=== PATIENT | male | born 2000 | race Caucasian/White ===

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

== ENCOUNTER 2020-05-16 11:48 | Emergency (ER) | payer OTHER ==
[~2020-05-16] VITALS: Ht 188 cm; Wt 77.1 kg
[2020-05-16 11:54] VITALS: BP 118/75
--- NOTE | 2020-05-16 12:10 | NUR ---
20 YEAR OLD MALE COMPLAINS OF RECTAL PAIN X 4 DAYS. PT STATES THAT HE HAS HAD PREVIOUS HISTORY OF HEMORRHOIDS, BUT MORE BLEEDING THIS TIME. PT DENIES TRAUMA. PT AOX4, BREATHING EVEN AND UNLABORED, SKIN WARM AND DRY. BED IN LOWEST POSITION, LOCKED, BED RAIL UPX1. PMH - DENIES ALLERGIES - NKA
[2020-05-16] MEDS ORDERED: LIDO30CR TP (12:27)
[2020-05-16] MEDS ORDERED: NITR0.4O RC (12:34)
[2020-05-16 12:39] VITALS: BP 118/75
--- NOTE | 2020-05-16 12:40 | NUR ---
Patient discharged with v/s stable. Written and verbal after care instructions about anal fissure given and explained. Patient alert, oriented and verbalized understanding of instructions. Ambulatory with steady gait. All questions addressed prior to discharge. ID band removed. Patient advised to follow up with PMD. Rx of lidocaine, rectiv given. Patient educated on indication of medication including possible reaction and side effects. Opportunity to ask questions provided and answered.
== END 2020-05-16 12:40 | disposition home or self-care (01) ==
LOC: MED 11:48
DX: K60.2 Anal fissure, unspecified (principal); Z79.899 Other long term (current) drug therapy
CPT/HCPCS: 99283

== ENCOUNTER 2020-05-27 13:54 | Emergency (ER) | payer OTHER ==
[~2020-05-27] VITALS: Ht 188 cm; Wt 77.1 kg
[~2020-05-27 13:54] MED LIST: LIDO30CR TP; NITR0.4O RC
[2020-05-27 13:58] VITALS: BP 122/59
--- NOTE | 2020-05-27 14:03 | NUR ---
Pt ambulated to bed 3.
--- NOTE | 2020-05-27 14:25 | NUR ---
20 Y/O MALE C/O RECTAL PAIN [id number], WAS SEEN AND DX WITH AN ANAL FISSURE PRESCRIBED CREAMS AND PAIN RX. PT STATED HIS S/S GOT WORSE AND SAW PCP WHO DX WITH INFECTION AND PRESCRIBED ABX X6DAYS. PT IS NOW STATING X2DAYS RECTAL PAIN IS 10/10 DESCRIBES THROBBING WORST WHEN SITTING AND NON-RADIATING. PT STATES +DISCHARGE, DENIES FEVER/CHILLS, DENIES N/V. PT STATES HE HAD 1ST COVID VACCINE 05/26/20. DENIES PMH NKA
--- NOTE | 2020-05-27 14:28 | NUR ---
MIREILLE Rubi at pt bedside for further evaluation.
[2020-05-27] MEDS ORDERED: KETOROLAC 60 MG/2 ML VIAL IM ONE (14:30)
[2020-05-27] MEDS ORDERED: DOXY100C9 PO (14:59)
[2020-05-27] MEDS ORDERED: NAPR-54 PO (14:59)
[2020-05-27 15:01] VITALS: BP 122/59
--- NOTE | 2020-05-27 15:02 | NUR ---
Patient discharged with v/s stable. Written and verbal after care instructions given and explained. Patient alert, oriented and verbalized understanding of instructions. Ambulatory with steady gait. All questions addressed prior to discharge. ID band removed. Patient advised to follow up with PMD. Rx of naproxen 500mg bid prn moderate pain, and doxycycline hyclate 100mg cap bid x7days given. Patient educated on indication of medication including possible reaction and side effects. Opportunity to ask questions provided and answered.
== END 2020-05-27 15:05 | disposition home or self-care (01) ==
LOC: MED 13:54
DX: L05.91 Pilonidal cyst without abscess (principal); Z79.899 Other long term (current) drug therapy
CPT/HCPCS: 96372; 99283; J1885

== ENCOUNTER 2020-06-06 12:42 | Emergency (ER) | payer OTHER ==
[~2020-06-06] VITALS: Ht 188 cm; Wt 77.1 kg
[~2020-06-06 12:42] MED LIST changes: +DOXY100C9 PO; +NAPR-54 PO
[2020-06-06 12:49] VITALS: BP 126/64
--- NOTE | 2020-06-06 12:55 | NUR ---
Pt ambulated to ER bed 2 with a steady gait.
--- NOTE | 2020-06-06 13:01 | NUR ---
20 Y/O MALE HERE FOR A RECHECK/MED REFILL. PT STATES HE WAS RECENTLY SEEN HERE IN ER FOR CYST AND PRESCRIBED ABX AND PAIN MEDICATION. PT IS ALMOST DONE WITH COURSE OF ABX AND ONLY SOME RELIEF OF SYMPTOMS, STATES HE HAS PAIN 5/10 CURRENTLY DESCRIBES BURNING AND ITCHING NON-RADIATING. DENIES PMH NKA
--- NOTE | 2020-06-06 13:13 | NUR ---
MIREILLE Kern at pt bedside for further evaluation.
[2020-06-06] MEDS ORDERED: LIDOCAINE MPF 1% 10 MG/ML VIAL INJ ONE (13:25)
--- NOTE | 2020-06-06 13:29 | NUR ---
Female Production Broaching Machine Operator accompanied male patient for Ultrasound. Skin around upper part of rectum erythema, pus noted. MIREILLE Kern aware. I & D ordered.
[2020-06-06] MEDS ORDERED: LIDOCAINE MPF 1% 5 ML ONE (13:34)
--- NOTE | 2020-06-06 13:36 | NUR ---
I & D set-up at pt bedside, MIREILLE Kern made aware.
[2020-06-06] MEDS ORDERED: KETOROLAC 30 MG/ML VIAL IM ONE (13:55)
[2020-06-06] MEDS ORDERED: CEPH500C16 PO (13:56)
[2020-06-06] MEDS ORDERED: IBUP-2213 PO (13:56)
[2020-06-06 14:27] VITALS: BP 126/64
--- NOTE | 2020-06-06 14:28 | NUR ---
Patient discharged with v/s stable. Written and verbal after care instructions given and explained. Patient alert, oriented and verbalized understanding of instructions. Ambulatory with steady gait. All questions addressed prior to discharge. ID band removed. Patient advised to follow up with PMD. Rx of KEFLEX 500MG QID PO AND IBUPROFEN 600MG PO Q6H PRN PAIN given. Patient educated on indication of medication including possible reaction and side effects. Opportunity to ask questions provided and answered.
== END 2020-06-06 14:28 | disposition home or self-care (01) ==
LOC: MED 12:42
DX: L05.01 Pilonidal cyst with abscess (principal); Z79.899 Other long term (current) drug therapy
CPT/HCPCS: 10080; 96372; 99284; J1885; J2001

== ENCOUNTER 2020-06-08 16:26 | Emergency (ER) | payer OTHER ==
[~2020-06-08] VITALS: Ht 188 cm; Wt 77.1 kg
[~2020-06-08 16:26] MED LIST changes: +CEPH500C16 PO; +IBUP-2213 PO
[2020-06-08 16:42] VITALS: BP 125/68
--- NOTE | 2020-06-08 16:42 | NUR ---
Pt ambulated to ER bed 2 with a steady gait. Triage at bedside.
--- NOTE | 2020-06-08 16:45 | NUR ---
20 Y/O MALE HERE FOR A RECHECK. PT STATES HE WAS RECENTLY SEEN HERE IN ER FOR I&D, PRESCRIBED ABX AND PAIN MEDICATION. PT IS ALMOST DONE WITH COURSE OF ABX AND FEELS RELIEF OF PREVIOUS SYMPTOMS OF BURNING AND ITCHINESS TO RECTAL AREA. PT STATES HE HAS PAIN 1/10 CURRENTLY DESCRIBES ACHING AND NON-RADIATING. PT DENIES N/V, DENIES FEVER/CHILLS. DENIES PMH NKA
--- NOTE | 2020-06-08 16:51 | NUR ---
MIREILLE Rubi at pt bedside for further evaluation.
[2020-06-08 16:57] VITALS: BP 125/68
--- NOTE | 2020-06-08 16:57 | NUR ---
Patient discharged with v/s stable. Written and verbal after care instructions given and explained. Patient verbalized understanding. Ambulatory with steady gait. All questions addressed prior to discharge. Advised to follow up with PMD.
== END 2020-06-08 16:57 | disposition home or self-care (01) ==
LOC: MED 16:26
DX: L05.01 Pilonidal cyst with abscess (principal); Z48.00 Encounter for change or removal of nonsurgical wound dressing; Z79.899 Other long term (current) drug therapy
CPT/HCPCS: 99281

== ENCOUNTER 2020-06-25 22:55 | Emergency (ER) | payer OTHER ==
[~2020-06-25] VITALS: Ht 188 cm; Wt 74.8 kg
[2020-06-25 23:05] VITALS: BP 123/77
--- NOTE | 2020-06-25 23:15 | NUR ---
20 Y/O MALE C/O ABD PAIN FOR 2 DAYS. STATES NAUSEA, DIARRHEA, AND LOSS OF APPETITE. DENIES VOMITING. ABD SOFT NON TENDER. PT STATES 6/10 STABBING PAIN. RECEIVED 2ND DOSE OF PFIZER VACCINE YESTERDAY. MEDHX: RECTAL FISSURE NKA
--- NOTE | 2020-06-25 23:15 | NUR ---
PT AMBULATED TO BED 04.
--- NOTE | 2020-06-25 23:18 | NUR ---
ERMD AT BEDSIDE EXAMINING PT
[2020-06-25] MEDS ORDERED: ONDANSETRON 4 MG ODT PO ONE (23:25)
[2020-06-25] MEDS ORDERED: LOPE-289 PO (23:30)
[2020-06-25] MEDS ORDERED: CIPR500T4 PO (23:30)
[2020-06-25] MEDS ORDERED: ONDA8TAB87 PO (23:30)
[2020-06-25] MEDS ORDERED: IBUP-2213 PO (23:30)
[2020-06-25 23:35] VITALS: BP 123/77
--- NOTE | 2020-06-25 23:35 | NUR ---
Patient discharged with v/s stable. Written and verbal after care instructions given and explained. Patient alert, oriented and verbalized understanding of instructions. Ambulatory with steady gait. All questions addressed prior to discharge. ID band removed. Patient advised to follow up with PMD. Rx of CIPROFLOXACIN, IBUPROFEN, LOPERAMIDE, ZOFRAN given. Patient educated on indication of medication including possible reaction and side effects. Opportunity to ask questions provided and answered.
== END 2020-06-25 23:35 | disposition home or self-care (01) ==
LOC: MED 22:55
DX: R10.13 Epigastric pain (principal); R11.0 Nausea; R19.7 Diarrhea, unspecified; F12.10 Cannabis abuse, uncomplicated; Z79.899 Other long term (current) drug therapy
CPT/HCPCS: 99283; Q0162

== ENCOUNTER 2021-10-25 17:40 | Emergency (ER) | payer OTHER ==
[~2021-10-25] VITALS: Ht 188 cm; Wt 72.6 kg
[~2021-10-25 17:40] MED LIST changes: +CIPR500T4 PO; +DOXY-690 PO; -DOXY100C9 PO; +LOPE-289 PO; +ONDA8TAB87 PO
[2021-10-25 17:41] VITALS: BP 138/89
--- NOTE | 2021-10-25 17:57 | NUR ---
21/M PRESENTS TO ED WITH C/O LEFT ANKLE PAIN S/P ROLLING HIS ANKLE WHILE PLAYING BASKETBALL 1 HOUR AGO. NO OBVIOUS DEFORMITY NOTED, SWELLING NOTED ANKLE. PATIENT AMBULATORY WITH USE OF PERSONAL CRUTCHES, DENIES TAKING MEDS FOR PAIN. SENSATION AND PULSES EQUAL BILATERALLY, DENIES NUMBNESS OR TINGLING.
[2021-10-25] MEDS ORDERED: IBUPROFEN 600 MG TAB PO ONE (18:00)
[2021-10-25] MEDS ORDERED: IBUP-2213 PO (18:42)
--- NOTE | 2021-10-25 19:15 | NUR ---
L ANKLE JOSE WRAP APPLIED X 1 + CMS
[2021-10-25 19:18] VITALS: BP 138/89
--- NOTE | 2021-10-25 19:18 | NUR ---
Patient discharged with v/s stable. Written and verbal after care instructions ABOUT ANKLE SPRAIN given and explained. Patient alert, oriented and verbalized understanding of instructions. Ambulatory with steady gait. All questions addressed prior to discharge. ID band removed. Patient advised to follow up with PMD. Rx of IBUPROFEN given. Patient educated on indication of medication including possible reaction and side effects. Opportunity to ask questions provided and answered.
== END 2021-10-25 19:18 | disposition home or self-care (01) ==
LOC: MED 17:40
DX: S93.402A Sprain of unspecified ligament of left ankle, initial encounter (principal); Z79.899 Other long term (current) drug therapy; Z79.1 Long term (current) use of non-steroidal anti-inflammatories (NSAID); Z79.2 Long term (current) use of antibiotics; X58.XXXA Exposure to other specified factors, initial encounter; Y92.310 Basketball court as the place of occurrence of the external cause; Y93.67 Activity, basketball; Y99.8 Other external cause status
CPT/HCPCS: 73610; 99283; Q0092